=== PATIENT | male | born 2005 | race Two or more races ===

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

== ENCOUNTER 2024-09-14 23:50 | Emergency (ER) | payer MEDICAID ==
[~2024-09-14] VITALS: Ht 172.7 cm; Wt 95.0 kg
--- NOTE | 2024-09-15 00:11 | ED.PDOC ---
Psychiatric HPI Comments 18-year-old biological male, female presenting patient brought in by EMS presents with a chief complaint of suicidal ideation. Patient [place] herself [place] the [facility] restroom after ingesting alcohol and cocaine. Patient endorses taking cocaine and alcohol this evening. Patient reports that she has been suicidal for "months now". Patient is transgender and states that it has been difficult for her mentally and that is a factor in her suicidal ideation. Patient denies homicidal ideation. Patient is tearful and anxious appearing. Patient reports history of suicide attempts in the past by wrist cutting. Time Seen by MD: 00:00 Primary Care Provider: Evelyne HAWK Reviewed Notes: Medications, Allergies Information Source: Patient, Emergency Med Personnel Mode of Arrival: EMS Severity of Pain: None Severity of Mental Status: Severe Severity of Symptoms: None Timing: Months Duration: Intermittent Prehospital treatment: None Presents with: Depression, Anxiety, Suicidal Ideation Ingestion: Drug(s) Ingested (Cocaine), ETOH Circumstance: Causing a Disturbance Current substance abuse: ETOH, Cocaine History of: Depression, Anxiety, Suicidal Attempt, Alcoholism, Substance Abuse Quality: Hopelessness Associated signs and symptoms: Hopeless, Anxiety, ETOH, Cocaine Vital Signs Vital Signs Date Time Temp Pulse Resp B/P (MAP) Pulse Ox O2 Delivery O2 Flow Rate FiO2 09/15/24 09:51 99.0 102 16 138/73 (94) 97 99.0 09/15/24 09:51 Room Air* 0 21 Physical Exam General: Awake, alert and oriented. No acute distress. Skin: Skin in warm, dry and intact without rashes or lesions. HEENT: The head is normocephalic and atraumatic. Conjunctivae are clear without exudates or hemorrhage. Sclera is non-icteric. Neck: Normal range of motion. No JVD. Cardiac: Regular rate Respiratory: No signs of respiratory distress. No Stridor. Extremities: Upper and lower extremities are atraumatic in appearance without deformity. Neurological: The patient is awake, alert and oriented to person, place, and time with normal speech. Speech is clear. There is no facial asymmetry. Psychiatric: Patient is tearful, appears intoxicated. Review of Systems: REVIEW OF SYSTEMS: No fever, no chills, or fatigue HEENT: No sore throat, no earache, no congestion, no neck pain. Cardiac: No chest pain. No palpitations. Lungs: No shortness of breath, no cough. GI: No nausea, no vomiting, no diarrhea, no constipation, no abdominal pain : No dysuria, frequency, or urgency. No hematuria. Musculoskeletal: No joint pain , no joint swelling, no extremity edema. Skin: No rash, no itching. Neuro: No headache, no dizziness, no weakness Psych: Positive suicidal ideation Past Medical History PAST MEDICAL HISTORY: Anxiety, Depression Past Medical History (Other): Gender Dysphoria Surgical History: Denies all surgeries Family History Family History: Reviewed,noncontributory to illness Social History Smoker: Non-Smoker Alcohol: Heavy Drugs: Cocaine Lives In: Home Was a procedure done? Was a procedure done?: No Psych Differential Dx Psych. Differential Dx: Anxiety, Bipolar Disorder, Depression, Hopeless, Sleepless, Suicidal OD Differential Dx: Alcohol Abuse, Drug Overdose X-Ray, Labs, Meds, VS Vital Signs Date Time Temp Pulse Resp B/P (MAP) Pulse Ox O2 Delivery O2 Flow Rate FiO2 09/15/24 09:51 99.0 102 16 138/73 (94) 97 99.0 09/15/24 09:51 102 16 97 Room Air* 0 21 09/15/24 03:10 124 16 96 Room Air* 0 21 09/15/24 01:13 124 16 96 Room Air* 0 21 09/15/24 01:12 99.1 124 16 134/77 (96) 96 99.1 09/14/24 23:52 97.6 110 18 153/94 (113) 95 97.6 Lab Test 09/15/24 02:32 09/15/24 01:42 09/15/24 01:10 09/15/24 00:17 Range/Units Influenza Type A Antigen Negative Negative Influenza Type B Antigen Negative Negative SARS-CoV-2 Antigen (Rapid) Negative NEGATIVE Lactic Acid Level 1.7 0.4-2.0 mmol/L Urine Color Colorless Yellow Urine Clarity Clear Clear Urine pH 5.5 5.0-9.0 Urine Specific [place] 1.003 1.001-1.035 Urine Protein Negative Negative Urine Ketones Negative Negative Urine Blood Negative Negative /uL Urine Nitrite Negative Negative Urine Bilirubin Negative Negative Urine Urobilinogen Normal Negative mg/dL Urine Leukocyte Esterase Negative Negative /uL Urine RBC None seen 0 - 3 /hpf Urine Microscopic WBC < 1 0-3 /HPF Urine Squamous Epithelial Cells Few <5 /hpf Urine Bacteria Few H None Seen /hpf Urine Glucose Normal Normal mg/dL Urine Opiates Screen Neg NEGATIVE Urine Fentanyl Screen Neg NEGATIVE Urine Barbiturates Screen Neg NEGATIVE Urine Phencyclidine Screen Neg NEGATIVE Urine Amphetamines Screen Neg NEGATIVE Urine Benzodiazepines Screen Neg NEGATIVE Urine Cocaine Screen Neg NEGATIVE Urine Cannabinoids Screen Neg NEGATIVE White Blood Count 17.7 H 4.4-10.8 10^3/uL Red Blood Count 5.27 4.5-5.90 10^6/uL Hemoglobin 16.2 13.5-17.5 g/dL Hematocrit 45.6 41.0-53.0 % Mean Corpuscular Volume 86.7 80.0-100.0 fL Mean Corpuscular Hemoglobin 30.8 28.0-32.0 pg Mean Corpuscular Hemoglobin Concent 35.5 32.0-36.0 g/dL Red Cell Distribution Width 13.2 11.8-14.3 % Platelet Count 445 140-450 10^3/uL Mean Platelet Volume 7.5 6.9-10.8 fL Neutrophils (%) (Auto) 55.8 37.0-80.0 % Lymphocytes (%) (Auto) 35.1 10.0-50.0 % Monocytes (%) (Auto) 6.1 0.0-12.0 % Eosinophils (%) (Auto) 2.2 0.0-7.0 % Basophils (%) (Auto) 0.8 0.0-2.0 % Neutrophils # (Auto) 9.9 H 1.6-8.6 10 ^3/uL Lymphocytes # (Auto) 6.2 H 0.4-5.4 10 ^3/uL Monocytes # (Auto) 1.1 0-1.3 10 ^3/uL Eosinophils # (Auto) 0.4 0-0.8 10 ^3/uL Basophils # (Auto) 0.1 0-0.2 10 ^3/uL Nucleated Red Blood Cells 0.0 % Sodium Level 141 136-145 mmol/L Potassium Level 3.4 L 3.5-5.1 mmol/L Chloride Level 109 H 98-107 mmol/L Carbon Dioxide Level 20 20-31 mmol/L Anion Gap 12 5-15 Blood Urea Nitrogen < 5 L 9-23 mg/dL Creatinine 0.79 0.700-1.30 mg/dL Glomerular Filtration Rate Calc 131 >90 mL/min BUN/Creatinine Ratio 6.3 L 10.0-20.0 Serum Glucose 92 74-106 mg/dL Calcium Level 10.3 8.7-10.4 mg/dL Total Bilirubin 0.3 0.2-1.0 mg/dL Aspartate Amino Transferase (AST) 16 13-40 U/L Alanine Aminotransferase (ALT) 27 7-40 U/L Alkaline Phosphatase 112 46-116 U/L Total Protein 8.4 H 5.7-8.2 g/dL Albumin 5.4 H 3.2-4.8 g/dL Plasma/Serum Blood Alcohol 273.6 H <10 mg/dL Current Medications Medications (Trade) Dose Ordered Sig/Brad Route Start Time Stop Time Status Last Admin Sodium Chloride 1,000 ml @ 1,000 mls/hr Q1H ONCE IV 09/15/24 01:30 09/15/24 02:29 DC 09/15/24 01:48 Potassium Chloride (Klor-Con Tablet) 40 meq ONCE ONCE PO 09/15/24 02:00 09/15/24 02:02 DC 09/15/24 02:25 PATIENT: KEVIN HERNANDEZCCT: [id number]: [id number] : 2005 LOC: ER ROOM / BED: / AGE / SEX: 18 / M ADM STATUS: REG ER SERVICE 2 ORDERING PHYSICIAN: LAMONT CLARK MD PROCEDURE(s): CXR1 - CHEST XRAY 1 VIEW REASON: Leukocytosis ORDER NUMBER(s): [id number], ACCESSION NUMBER(s): [id number] CHEST RADIOGRAPH Indication: Leukocytosis Technique: Single frontal view of the chest was obtained Comparison: None IMPRESSION: Heart appears normal in size. The lungs appear clear without focal airspace opacity, effusion, or pneumothorax ATED BY: PRAMOD BORDEN MD DICTATED DATE/TIME: 09/15/24318 SIGNED BY: PRAMOD BORDEN MD SIGNED DATE/TIME: 09/15/24318 Time of 1ST Reevaluation: 00:30 Reevaluation 1ST: Unchanged Patient Education/Counseling: Need For Follow Up Family Education/Counseling: No Family Present Departure 1 Departure Time of Disposition: 11:43 (Patient is re-evaluated by Dr. Hernandez when patient is clinically sober patient would like to go home. Patient is not a threat to herself with cleared for discharge.) Impression: Primary Impression: Suicidal ideation Additional Impression: Leukocytosis Qualified Codes: D72.829 - Elevated white blood cell count, unspecified Disposition: 01 HOME / SELF CARE / HOMELESS Condition: Stable Additional Instructions: Please continue to take your regular medications and follow up with the regular doctors. Comments 18-year-old patient presents with alcohol/substance intoxication and suicidal ideation. Case was discussed with Dr. Hernandez (@02:50), recommendation is inpatient treatment, social work manager consultation in the morning. Critical Care Note Critical Care Time?: No Stability Stability form required: No Heart Score Heart Score: Heart Score Response (Comments) Value History N/A 0 EKG N/A 0 Age N/A 0 Risk Factors N/A 0 Troponin N/A 0 Total 0 I personally scribed for LAMONT CLARK MD ([email or web address]) on 09/15/24 at 00:11. Electronically submitted by Selwyn Dias ([email or web address]). I personally scribed for LAMONT CLARK MD ([email or web address]) on 09/15/24 at 05:42. Electronically submitted by Selwyn Dias ([email or web address]). LAMONT CLARK MD Sep 15, 2024 00:11 YANI PEREZ MD Sep 15, 2024 11:44
[2024-09-15 00:26] LABS: Basophils # (auto) 0.1 10 ^3/uL (0-0.2); Basophils % (auto) 0.8 % (0.0-2.0); Eosinophils # (auto) 0.4 10 ^3/uL (0-0.8); Eosinophils % (auto) 2.2 % (0.0-7.0); Hematocrit 45.6 % (41.0-53.0); Hemoglobin 16.2 g/dL (13.5-17.5); Lymphocytes # (auto) 6.2 10 ^3/uL (0.4-5.4); Lymphocytes % (auto) 35.1 % (10.0-50.0); Mean Corpuscular Hemoglobin 30.8 pg (28.0-32.0); Mean Corpuscular Hgb Conc. 35.5 g/dL (32.0-36.0); Mean Corpuscular Volume 86.7 fL (80.0-100.0); Monocytes # (auto) 1.1 10 ^3/uL (0-1.3); Monocytes % (auto) 6.1 % (0.0-12.0); Neutrophils # (auto) 9.9 10 ^3/uL (1.6-8.6); Neutrophils % (auto) 55.8 % (37.0-80.0); Platelet Count (auto) 445 10^3/uL (140-450); Red Blood Cells 5.27 10^6/uL (4.5-5.90); Red Cell Distribution Width 13.2 % (11.8-14.3); White Blood Cell 17.7 10^3/uL (4.4-10.8)
[2024-09-15 00:45] LABS: Alanine Aminotransferase 27 U/L (7-40); Alkaline Phosphatase 112 U/L (46-116); Anion Gap 12 (5-15); Aspartate Aminotransferase 16 U/L (13-40); Bilirubin, Total 0.3 mg/dL (0.2-1.0); Calcium 10.3 mg/dL (8.7-10.4); Glucose 92 mg/dL (74-106); Sodium 141 mmol/L (136-145)
[2024-09-15 00:46] LABS: Albumin 5.4 g/dL (3.2-4.8); BUN/Creatinine Ratio 6.3 (10.0-20.0); Blood Urea Nitrogen < 5 mg/dL (9-23); Carbon Dioxide 20 mmol/L (20-31); Chloride 109 mmol/L (98-107); Potassium 3.4 mmol/L (3.5-5.1); Total Protein 8.4 g/dL (5.7-8.2)
[2024-09-15 01:13] VITALS: PULSE 124; RESP 16; O2SAT 96
[2024-09-15 01:33] LABS: Urine Bacteria FEW /hpf (None Seen); Urine Blood Negative /uL (Negative); Urine Clarity Clear (Clear); Urine Color Colorless (Yellow); Urine Protein, UAD Negative (Negative); Urine Specific Gravity 1.003 (1.001-1.035); Urine Squamous Epithelial Cell FEW /hpf (<5); Urine Urobilinogen Normal (Negative); Urine WBC < 1 /HPF (0-3); Urine pH 5.5 (5.0-9.0)
[2024-09-15 01:35] LABS: Amphetamine Screen, Urine Neg (NEGATIVE); Barbiturate Scree,Urine Neg (NEGATIVE); Benzodiazephine Screen, Urine Neg (NEGATIVE); Cannabinoid Screen, Urine Neg (NEGATIVE); Cocaine Screen, Urine Neg (NEGATIVE); Opiate Scree,Urine Neg (NEGATIVE); Phencyclidine Screen, Urine Neg (NEGATIVE)
[2024-09-15 01:36] LABS: Blood Alcohol 273.6 mg/dL (<10)
[2024-09-15] MEDS: SODIUM CHLORIDE 0.9% 1,000 ML IV ONE (01:48)
[2024-09-15] MEDS: POTASSIUM CHL 20 Meq TABLET PO ONE (02:25)
--- NOTE | 2024-09-15 02:55 | DVHINCON2 ---
Date of Service if different f: Sep 15, 2024 Time of Service: 02:29 Consultation ([facility]) Consulting Physician: MIKALA RUFFIN MD Labs Laboratory Tests Test 09/15/24 00:17 09/15/24 01:10 09/15/24 01:42 White Blood Count 17.7 10^3/uL (4.4-10.8) Red Blood Count 5.27 10^6/uL (4.5-5.90) Hemoglobin 16.2 g/dL (13.5-17.5) Hematocrit 45.6 % (41.0-53.0) Mean Corpuscular Volume 86.7 fL (80.0-100.0) Mean Corpuscular Hemoglobin 30.8 pg (28.0-32.0) Mean Corpuscular Hemoglobin Concent 35.5 g/dL (32.0-36.0) Red Cell Distribution Width 13.2 % (11.8-14.3) Platelet Count 445 10^3/uL (140-450) Mean Platelet Volume 7.5 fL (6.9-10.8) Neutrophils (%) (Auto) 55.8 % (37.0-80.0) Lymphocytes (%) (Auto) 35.1 % (10.0-50.0) Monocytes (%) (Auto) 6.1 % (0.0-12.0) Eosinophils (%) (Auto) 2.2 % (0.0-7.0) Basophils (%) (Auto) 0.8 % (0.0-2.0) Neutrophils # (Auto) 9.9 10 ^3/uL (1.6-8.6) Lymphocytes # (Auto) 6.2 10 ^3/uL (0.4-5.4) Monocytes # (Auto) 1.1 10 ^3/uL (0-1.3) Eosinophils # (Auto) 0.4 10 ^3/uL (0-0.8) Basophils # (Auto) 0.1 10 ^3/uL (0-0.2) Nucleated Red Blood Cells 0.0 % Sodium Level 141 mmol/L (136-145) Potassium Level 3.4 mmol/L (3.5-5.1) Chloride Level 109 mmol/L (98-107) Carbon Dioxide Level 20 mmol/L (20-31) Anion Gap 12 (5-15) Blood Urea Nitrogen < 5 mg/dL (9-23) Creatinine 0.79 mg/dL (0.700-1.30) Glomerular Filtration Rate Calc 131 mL/min (>90) BUN/Creatinine Ratio 6.3 (10.0-20.0) Serum Glucose 92 mg/dL (74-106) Calcium Level 10.3 mg/dL (8.7-10.4) Total Bilirubin 0.3 mg/dL (0.2-1.0) Aspartate Amino Transf (AST/SGOT) 16 U/L (13-40) Alanine Aminotransferase (ALT/SGPT) 27 U/L (7-40) Alkaline Phosphatase 112 U/L (46-116) Total Protein 8.4 g/dL (5.7-8.2) Albumin 5.4 g/dL (3.2-4.8) Plasma/Serum Blood Alcohol 273.6 mg/dL (<10) Urine Color Colorless (Yellow) Urine Clarity Clear (Clear) Urine pH 5.5 (5.0-9.0) Urine Specific [place] 1.003 (1.001-1.035) Urine Protein Negative (Negative) Urine Ketones Negative (Negative) Urine Blood Negative /uL (Negative) Urine Nitrite Negative (Negative) Urine Bilirubin Negative (Negative) Urine Urobilinogen Normal mg/dL (Negative) Urine Leukocyte Esterase Negative /uL (Negative) Urine RBC None seen /hpf (0 - 3) Urine Microscopic WBC < 1 /HPF (0-3) Urine Squamous Epithelial Cells Few /hpf (<5) Urine Bacteria Few /hpf (None Seen) Urine Glucose Normal mg/dL (Normal) Urine Opiates Screen Neg (NEGATIVE) Urine Fentanyl Screen Neg (NEGATIVE) Urine Barbiturates Screen Neg (NEGATIVE) Urine Phencyclidine Screen Neg (NEGATIVE) Urine Amphetamines Screen Neg (NEGATIVE) Urine Benzodiazepines Screen Neg (NEGATIVE) Urine Cocaine Screen Neg (NEGATIVE) Urine Cannabinoids Screen Neg (NEGATIVE) Lactic Acid Level 1.7 mmol/L (0.4-2.0) Appearance: Stated age Psychomotor activity: WNL Behavioral: Cooperative Eye contact: Appropriate Speech: WNL Affect: Mood Congruent Mood: Depressed, Anxious Thought processes: Linear/Goal-directed Thought content: WNL Suicidal ideations: Present Homicidal ideations: Absent Orientation: Person, Place, Time, Situation Memory intact: Recent Intellect: Average Abstractability: WNL Concentration: Adequate Attention: Adequate Judgement: WNL Insight: Fair Vitals Vital Signs Date Time Temp Pulse Resp B/P (MAP) Pulse Ox O2 Delivery O2 Flow Rate FiO2 09/15/24 01:13 124 16 96 Room Air* 0 21 09/15/24 01:12 99.1 134/77 (96) 99.1 Treatment plan discussed: With staff Medication adjusted: No Labs ordered: No Psychotherapy provided: No Type: Voluntary History of Present Illness Reason for Consult : psychiatric evaluation PER H&P: .18-year-old biological male, female presenting patient brought in by EMS presents with a chief complaint of suicidal ideation. Patient [place] herself [place] the [place] restroom after ingesting alcohol and cocaine. Patient endorses taking cocaine and alcohol this evening. Patient reports that she has been suicidal for "months now". Patient is transgender and states that it has been difficult for her mentally and that is a factor in her suicidal ideation. Patient denies homicidal ideation. Patient is tearful and anxious appearing. PSYCHIATRIST HPI: The patient was seen and evaluated at [facility] ED via telepsychiatry platform. 18 yr old transwoman reported "I haven't been feeling stable." She reported she has been feeling really bad the past two weeks. She reported she felt like she was having a hard flaco last night so called he ambulance to get help because she felt very close to "ending it all." She called the suicide hotline and spoke with them. She drank a few drinks yesterday because "I use alcohol to cope with my feelings." She noted that she felt okay with her drinking tonight, and didn't feel really desperate at that time, but got more depressed later. She noted she has felt periods of depression since she was 13. She said that "finding out who I was put me in the best emotional state." She notes sometimes alcohol gets out of hand. She denied having severe alcohol withdrawal. She reported she feels very anxious and depressed about the current administration and feels unsure of what can happen to her if things consider. She feels unsafe for herself and worries that she will harm herself if she doesn't get therapy or help. She denied having auditory and visual hallucinations and homicidal ideation. Past Psychiatric History : No history of hospitalization or treatment. Suicide attempt by cutting wrist in 2021. Past Medical History : Transitioning male to female, GERD Current medications: Spironolactone, Progesterone, Estradiol. NKDA Substance use: Alcohol-drinks 3-4 drinks a few times a week. Uses cocaine a couple times a month. Denied use of other substances. Social History : Lives in [place] with brother and sister in law. Never , No children. Graduated HS. Attends [employer]. 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 Diagnosis: UNSPECIFIED DEPRESSIVE DISORDER; ALCOHOL USE DISORDER Formulation: This 18 yr old trans woman appears to suffer from depression and alcohol use disorder and has some persistent suicidal ideation and is a moderate risk for self harm. She warrants admission to a behavioral health unit. She may benefit from admission to [facility] and getting therapy. She agrees to voluntary admission and meets criteria for hospitalization on basis of danger to self. Plan: 1. Transfer to Behavioral Health Unit when bed available. Recommend social work consult to see if an outpatient therapy plan could be set up. 2. Legal-Voluntary status. 3. Medications: she may benefit from starting an SSRI, but would prefer to start with therapy first. 4. Case discussed with ED physician, Rebecca James. 5. Please recontact psychiatry for further follow up or reevaluation. Assessment/Diagnosis/Plan Reviewed: Medications, Previous Orders MIKALA RUFFIN MD Sep 15, 2024 02:31
[2024-09-15 03:10] VITALS: PULSE 124; RESP 16; O2SAT 96
--- NOTE | 2024-09-15 03:22 | DVH ---
CHEST RADIOGRAPH Indication: Leukocytosis Technique: Single frontal view of the chest was obtained Comparison: None IMPRESSION: Heart appears normal in size. The lungs appear clear without focal airspace opacity, effusion, or pn eumothorax
[2024-09-15 03:44] LABS: COVID19 ANTIGEN SOFIA FIA NEGATIVE (NEGATIVE); Rapid Influenza A Negative (Negative); Rapid Influenza B Negative (Negative)
[2024-09-15 09:51] VITALS: BP 138/73; PULSE 102; RESP 16; TEMP 99; O2SAT 97
--- NOTE | 2024-09-15 11:27 | TELE.CONS ---
PSYCHIATRY REASSESSMENT Date: 09/15/24 1115 S: The patient was seen and evaluated at [facility] ED via telepsychiatry platform. 18 yr old transwoman admitted for depression and seen by psychiatrist Dr Hernandez last night and diagnosed with unspecified depressive disorder. She reported she spoke with social services analyst Carloz Hathaway earlier today and received some outpatient MH resources and plans to follow up with outpatient care. She stated she no longer feels suicidal and feels optimistic for the future. She noted that she sometimes feels more depressed after she has been drinking and realized that's what happened last night. She denied having SI/HI/AVH. She feels comfortable being discharged home. MSE: alert and oriented speech-regular rate, rhythm and volume Mood-"better" Affect-euthymic, full range, congruent. Tht process-linear and goal directed Tht Content- Denied having suicidal and homicidal ideation. Denied auditory or visual hallucinations. No delusions or perseverations noted Insight-fair Judgment-fair Impulse control-fair. Diagnosis: UNSPECIFIED DEPRESSIVE DISORDER F32.A Assessment: This 18 yr old transwoman appears to suffer from depression. She does not meet criteria for involuntary hold. She may benefit from getting into therapy and following up with outpatient mental health. Plan: 1. Safety. The patient is a low risk for self harm. 2. Legal-voluntary. 3. Medications- She does not desire medications at this time. 4. Case discussed with ED Physician, Wesly Bobby. 5. Please contact psychiatry if further follow up or reevaluation is desired. Yes MIKALA HERNANDEZ MD Sep 15, 2024 11:27
== END 2024-09-15 11:52 | disposition home or self-care (01) ==
LOC: EDBD 23:50 → ER 23:50 → EDUNIT# 23:50 → ER 09-15 11:52
DX: R45.851 Suicidal ideations (principal); D72.829 Elevated white blood cell count, unspecified; F41.9 Anxiety disorder, unspecified; F32.A Depression, unspecified; Z79.899 Other long term (current) drug therapy; Z20.822 Contact with and (suspected) exposure to COVID-19
CPT/HCPCS: 36415; 71045; 80053; 80307; 80320; 81001; 83605; 85025; 87426; 87804; 96360; 99285; J7030